=== PATIENT | female | born 1990 | race Hispanic/Latino ===

== ENCOUNTER 2021-02-15 13:31 | Emergency (ER) | payer OTHER ==
[~2021-02-15] VITALS: Ht 160 cm; Wt 49.9 kg
[2021-02-15 13:35] VITALS: BP 124/74
== END 2021-02-15 14:33 ==
LOC: EDH 13:31
DX: Z20.822 Contact with and (suspected) exposure to COVID-19 (principal); F20.9 Schizophrenia, unspecified
CPT/HCPCS: 87635; 99283; C9803